=== PATIENT | female | born 1980 | race Caucasian/White ===

== ENCOUNTER 2017-09-26 21:34 | Emergency (ER) | payer OTHER ==
[2017-09-26] MEDS ORDERED: Promethazine 25 MG/ML SDV IM ONE (23:25)
[2017-09-26] MEDS ORDERED: Butorphanol 2 MG/ML SDV IM ONE (23:25)
[2017-09-26 23:27] VITALS: BP 157/91
--- NOTE | 2017-09-26 23:31 | EDM.PDOC ---
ED HPI GENERAL MEDICAL PROBLEM - General Chief Complaint: Headache Stated Complaint: VOMITING MIGRAINE Time Seen by Provider: 09/26/17 23:26 Source of Information: Reports: Patient History Limitations: Reports: No Limitations - History of Present Illness INITIAL COMMENTS - FREE TEXT/NARRATIVE: gives long h/o migraines. 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 Headache Pain Score (Numeric/FACES): 10 - Related Data Allergies Allergy/AdvReac Type Severity Reaction Status Date / Time amoxicillin [Amoxicillin] Allergy Hives Verified 09/26/17 22:44 erythromycin base Allergy Hives Verified 09/26/17 22:44 [Erythromycin Base] Home Meds: Home Meds Levothyroxine Sodium [Synthroid] 75 mcg PO DAILY 12/22/13 [History] Fluoxetine 20 mg PO DAILY 11/08/15 [History] Labetolol 100 mg PO DAILY 11/08/15 [History] Calcium Carbonate [Calcium] 500 mg PO DAILY 01/03/16 [History] Riboflavin [Vitamin B-2] 200 mg PO BID 01/03/16 [History] Past Medical History HEENT History: Reports: Otitis Media Cardiovascular History: Reports: Hypertension Respiratory History: Reports: None Gastrointestinal History: Reports: Celiac Disease Genitourinary History: Reports: None 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: , 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 (See Below) Other OB/BYN History: PCOS Neurological History: Reports: Migraines Psychiatric History: Reports: Anxiety Endocrine/Metabolic History: Reports: Hypothyroidism Hematologic History: Reports: None Immunologic History: Reports: None Oncologic (Cancer) History: Reports: None Dermatologic History: Reports: None - Infectious Disease History Infectious Disease History: Reports: Chicken Pox - Past Surgical History Musculoskeletal Surgical History: Reports: Other (See Below) Social & Family History - Family History Family Medical History: Noncontributory - Tobacco Use Smoking Status *Q: Never Smoker Second Hand Smoke Exposure: No - Caffeine Use Caffeine Use: Reports: Soda - Alcohol Use Days Per Week of Alcohol Use: 0 - Recreational Drug Use Recreational Drug Use: No - Living Situation & Occupation Occupation: Employed ED ROS GENERAL - Review of Systems Review Of Systems: ROS reveals no pertinent complaints other than HPI. - Physical Exam Exam: See Below Exam Limited By: No Limitations General Appearance: Alert, WD/WN, Mild Distress, Moderate Distress, Other ( headache) Eye Exam: Bilateral Eye: PERRL (pupils ER @ 4mm) Ears: Hearing Grossly Normal Throat/Mouth: Normal Voice, No Airway Compromise Head Exam: Atraumatic Neck: Non-Tender, Full Range of Motion Respiratory/Chest: No Respiratory Distress Cardiovascular: Regular Rate, Rhythm GI/Abdominal: Soft, Non-Tender Neuro Exam (Abbreviated): Alert, Oriented, Normal Cognition, Normal Gait, No Motor/Sensory Deficits Psychiatric: Tearful Skin Exam: Warm, Dry, Normal Color Course - Vital Signs Last Recorded V/S: Last Vital Signs Temp 36.5 C 09/26/17 23:26 Pulse 67 09/26/17 23:26 Resp 14 09/26/17 23:26 BP 157/91 H 09/26/17 23:26 Pulse Ox 97 09/26/17 23:26 - Orders/Labs/Meds Labs: Laboratory Tests 09/26/17 Range/Units 22:54 Urine HCG, Qual Negative Meds: Medications Discontinued Medications Generic Name Dose Route Start Last Admin Trade Name Claudia PRN Reason Stop Dose Admin Butorphanol Tartrate 2 mg 09/26/17 23:25 09/26/17 23:31 Stadol IM 09/26/17 23:26 2 mg ONETIME ONE Administration Ondansetron HCl 4 mg 09/27/17 00:11 09/27/17 00:16 Zofran Odt PO 09/27/17 00:12 4 mg ONETIME ONE Administration Promethazine HCl 25 mg 09/26/17 23:25 09/26/17 23:32 Phenergan IM 09/26/17 23:26 25 mg ONETIME ONE Administration - Re-Assessments/Exams Free Text/Narrative Re-Assessment/Exam: 09/27/17 00:11 re-exam; s/p stadol + phenergan = much better but feels little nauseous when get up. otherwise pain almost gone. Departure - Departure Time of Disposition: 00:27 Disposition: Home, Self-Care 01 Condition: Good Clinical Impression: Migraine - Discharge Information Instructions: Recurrent Migraine Headache, [id number] Forms: ED Department Discharge Additional Instructions: 1) rest as much as possible 2) follow up with family doctor or recheck as needed
[2017-09-27] MEDS ORDERED: Ondansetron 4 MG Tab.DIS PO ONE (00:11)
== END 2017-09-27 00:29 | disposition home or self-care (01) ==
LOC: DL.ED 21:34
DX: G43.909 Migraine, unspecified, not intractable, without status migrainosus (principal); I10 Essential (primary) hypertension; Z88.1 Allergy status to other antibiotic agents; Z79.899 Other long term (current) drug therapy
CPT/HCPCS: 81025; 96372; 99284; A9270; J0595; J2550

== ENCOUNTER 2018-12-17 20:34 | Emergency (ER) | payer OTHER ==
[2018-12-17] MEDS ORDERED: Ondansetron 4 MG/2 ML SDV IV ONE (20:46)
[2018-12-17] MEDS ORDERED: Sodium Chloride 0.9% 1,000 ML IV ONE (20:46)
--- NOTE | 2018-12-17 20:49 | EDM.PDOC ---
ED HPI GENERAL MEDICAL PROBLEM - General Chief Complaint: Abdominal Pain Stated Complaint: GALBLADDER ATTACK [id number] Time Seen by Provider: 12/17/18 20:47 Source of Information: Reports: Patient History Limitations: Reports: No Limitations - History of Present Illness INITIAL COMMENTS - FREE TEXT/NARRATIVE: onset yesterday with diarrhoea denies h/o GB problems, ate breakfast of cereal then lunch of cheese sticks and milk and tonight tacos today and felt worse with more pain but no further V&D. also trying to get . Epigastric Pain Score (Numeric/FACES): 8 - Related Data Allergies Allergy/AdvReac Type Severity Reaction Status Date / Time amoxicillin [Amoxicillin] Allergy Hives Verified 12/17/18 21:15 erythromycin base Allergy Hives Verified 12/17/18 21:15 [Erythromycin Base] Home Meds: Home Meds Levothyroxine Sodium [Synthroid] 75 mcg PO DAILY 12/22/13 [History] Fluoxetine 20 mg PO DAILY 11/08/15 [History] Labetolol 100 mg PO DAILY 11/08/15 [History] Calcium Carbonate [Calcium] 500 mg PO DAILY 01/03/16 [History] Riboflavin [Vitamin B-2] 200 mg PO BID 01/03/16 [History] metFORMIN [Glucophage] 500 mg PO DAILY 12/17/18 [History] Past Medical History HEENT History: Reports: Otitis Media Cardiovascular History: Reports: Hypertension Respiratory History: Reports: None Gastrointestinal History: Reports: Celiac Disease Genitourinary History: Reports: None 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: , 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 (See Below) Other RN PROGRESSIVE CARE UNIT History: PCOS Neurological History: Reports: Migraines Psychiatric History: Reports: Anxiety Endocrine/Metabolic History: Reports: Hypothyroidism Hematologic History: Reports: None Immunologic History: Reports: None Oncologic (Cancer) History: Reports: None Dermatologic History: Reports: None - Infectious Disease History Infectious Disease History: Reports: Chicken Pox - Past Surgical History Musculoskeletal Surgical History: Reports: Other (See Below) Social & Family History - Family History Family Medical History: Noncontributory - Caffeine Use Caffeine Use: Reports: Soda - Living Situation & Occupation Occupation: Employed ED ROS GENERAL - Review of Systems Review Of Systems: ROS reveals no pertinent complaints other than HPI. ED EXAM, GI/ABD - Physical Exam Exam: See Below Exam Limited By: No Limitations General Appearance: Alert, WD/WN, Mild Distress, Other (discomfort) Ears: Hearing Grossly Normal Throat/Mouth: Normal Voice, No Airway Compromise Head: Atraumatic Neck: Non-Tender, Full Range of Motion Respiratory/Chest: No Respiratory Distress Cardiovascular: Regular Rate, Rhythm GI/Abdominal Exam: Tender, Other (epiG). No: Distended, Guarding, Rigid, Rebound Neurological: Alert, Oriented, Normal Cognition, Normal Gait, No Motor/Sensory Deficits Psychiatric: Flat Affect Skin Exam: Warm, Dry, Normal Color Lymphatic: No Adenopathy Course - Vital Signs Last Recorded V/S: Last Vital Signs Temp 35.5 C 12/17/18 23:16 Pulse 92 12/17/18 23:56 Resp 14 12/17/18 23:56 BP 126/83 12/17/18 23:56 Pulse Ox 95 12/17/18 23:56 - Orders/Labs/Meds Orders: Active Orders 24 hr Category Date Time Status CULTURE BLOOD [BC] Stat Lab 12/17/18 20:54 Received CULTURE URINE [RM] Stat Lab 12/17/18 20:45 Received Labs: Laboratory Tests 12/17/18 12/17/18 12/17/18 Range/Units 20:45 20:45 20:45 WBC (5.0-10.0) 10^3/uL RBC (4.2-5.4) 10^6/uL Hgb (12.0-16.0) g/dL Hct (37.0-47.0) % MCV (80-100) fL MCH (27.0-34.0) pg MCHC (33.0-35.0) g/dL Plt Count (150-450) 10^3/uL Neut % (Auto) (42.2-75.2) % Lymph % (Auto) (20.5-50.1) % [place] % (Auto) (2-8) % Eos % (Auto) (1.0-3.0) % Baso % (Auto) (0.0-1.0) % Sodium (135-145) mmol/L Potassium (3.6-5.0) mmol/L Chloride (101-111) mmol/L Carbon Dioxide (21.0-31.0) mmol/L Anion Gap BUN (7-18) mg/dL Creatinine (0.6-1.3) mg/dL Est Cr Clr Drug Dosing mL/min Estimated GFR (MDRD) BUN/Creatinine Ratio Glucose (74-105) mg/dL Lactic Acid (0.5-2.2) mmol/L Calcium (8.4-10.2) mg/dl Total Bilirubin (0.2-1.0) mg/dL AST (10-42) IU/L ALT (10-60) IU/L Alkaline Phosphatase (42-121) IU/L Total Protein (6.7-8.2) g/dl Albumin (3.2-5.5) g/dl Globulin Albumin/Globulin Ratio Amylase (28-100) U/L Lipase (22-51) U/L Urine Color Yellow (YELLOW) Urine Appearance Slightly cloudy (CLEAR) Urine pH 6.5 (5.0-9.0) Ur Specific [place] 1.020 (1.005-1.030) Urine Protein Negative (NEGATIVE) Urine Glucose (UA) Negative (NEGATIVE) Urine Ketones Trace H (NEGATIVE) Urine Occult Blood Negative (NEGATIVE) Urine Nitrite Negative (NEGATIVE) Urine Bilirubin Negative (NEGATIVE) Urine Urobilinogen 0.2 (0.2-1.0) mg/dL Ur Leukocyte Esterase Trace H (NEGATIVE) Urine RBC 0-5 /HPF Urine WBC 0-5 (0-5/HPF) /HPF Ur Epithelial Cells Many H /HPF Urine Bacteria Moderate H (0-FEW/HPF) /HPF Urinalysis Comment Urine HCG, Qual Negative Urine Opiates Screen Negative (NEGATIVE) Ur Oxycodone Screen Negative (NEGATIVE) Urine Methadone Screen Negative (NEGATIVE) Ur Barbiturates Screen Negative (NEGATIVE) U Tricyclic Antidepress Negative (NEGATIVE) Ur Phencyclidine Scrn Negative (NEGATIVE) Ur Amphetamine Screen Negative (NEGATIVE) U Methamphetamines Scrn Negative (NEGATIVE) Urine MDMA Screen Positive H (NEGATIVE) U Benzodiazepines Scrn Negative (NEGATIVE) Urine Cocaine Screen Negative (NEGATIVE) U Marijuana (THC) Screen Negative (NEGATIVE) 12/17/18 12/17/18 12/17/18 Range/Units 20:54 20:54 20:54 WBC 16.6 H (5.0-10.0) 10^3/uL RBC 4.65 (4.2-5.4) 10^6/uL Hgb 13.4 (12.0-16.0) g/dL Hct 39.8 (37.0-47.0) % MCV 85.6 D (80-100) fL MCH 28.8 (27.0-34.0) pg MCHC 33.7 (33.0-35.0) g/dL Plt Count 337 D (150-450) 10^3/uL Neut % (Auto) 78.1 H (42.2-75.2) % Lymph % (Auto) 14.9 L (20.5-50.1) % [place] % (Auto) 5.6 (2-8) % Eos % (Auto) 1.2 (1.0-3.0) % Baso % (Auto) 0.2 (0.0-1.0) % Sodium 134 L (135-145) mmol/L Potassium 3.8 (3.6-5.0) mmol/L Chloride 101 (101-111) mmol/L Carbon Dioxide 22.0 (21.0-31.0) mmol/L Anion Gap 14.8 BUN 17 (7-18) mg/dL Creatinine 0.7 (0.6-1.3) mg/dL Est Cr Clr Drug Dosing 113.88 mL/min Estimated GFR (MDRD) > 60 BUN/Creatinine Ratio 24.28 Glucose 99 (74-105) mg/dL Lactic Acid 1.3 (0.5-2.2) mmol/L Calcium 9.0 (8.4-10.2) mg/dl Total Bilirubin 0.6 (0.2-1.0) mg/dL AST 24 (10-42) IU/L ALT 22 (10-60) IU/L Alkaline Phosphatase 60 (42-121) IU/L Total Protein 6.9 (6.7-8.2) g/dl Albumin 3.9 (3.2-5.5) g/dl Globulin 3.0 Albumin/Globulin Ratio 1.30 Amylase 60 (28-100) U/L Lipase 31 (22-51) U/L Urine Color (YELLOW) Urine Appearance (CLEAR) Urine pH (5.0-9.0) Ur Specific [place] (1.005-1.030) Urine Protein (NEGATIVE) Urine Glucose (UA) (NEGATIVE) Urine Ketones (NEGATIVE) Urine Occult Blood (NEGATIVE) Urine Nitrite (NEGATIVE) Urine Bilirubin (NEGATIVE) Urine Urobilinogen (0.2-1.0) mg/dL Ur Leukocyte Esterase (NEGATIVE) Urine RBC /HPF Urine WBC (0-5/HPF) /HPF Ur Epithelial Cells /HPF Urine Bacteria (0-FEW/HPF) /HPF Urinalysis Comment Urine HCG, Qual Urine Opiates Screen (NEGATIVE) Ur Oxycodone Screen (NEGATIVE) Urine Methadone Screen (NEGATIVE) Ur Barbiturates Screen (NEGATIVE) U Tricyclic Antidepress (NEGATIVE) Ur Phencyclidine Scrn (NEGATIVE) Ur Amphetamine Screen (NEGATIVE) U Methamphetamines Scrn (NEGATIVE) Urine MDMA Screen (NEGATIVE) U Benzodiazepines Scrn (NEGATIVE) Urine Cocaine Screen (NEGATIVE) U Marijuana (THC) Screen (NEGATIVE) Meds: Medications Discontinued Medications Generic Name Dose Route Start Last Admin Trade Name Freq PRN Reason Stop Dose Admin Hydromorphone HCl 1 mg 12/17/18 23:23 12/17/18 23:28 Dilaudid IVPUSH 12/17/18 23:24 1 mg ONETIME ONE Administration Sodium Chloride 1,000 mls @ 999 mls/hr 12/17/18 20:46 12/17/18 21:02 Normal Saline IV 12/17/18 21:46 999 mls/hr .BOLUS ONE Administration Iopamidol 100 ml 12/17/18 22:17 12/17/18 22:28 Isovue-300 (61%) IVPUSH 12/17/18 22:18 100 ml ONETIME ONE Administration Ketorolac Tromethamine 30 mg 12/17/18 21:31 12/17/18 21:34 Toradol IVPUSH 12/17/18 21:32 30 mg ONETIME ONE Administration Metoclopramide HCl 10 mg 12/17/18 23:23 12/17/18 23:28 Reglan IVPUSH 12/17/18 23:24 10 mg ONETIME ONE Administration Ondansetron HCl 4 mg 12/17/18 20:46 12/17/18 21:01 Zofran IV 12/17/18 20:47 4 mg ONETIME ONE Administration - Re-Assessments/Exams Free Text/Narrative Re-Assessment/Exam: 12/17/18 23:24 results discussed with pt. 12/18/18 00:23 re-exam feeling much better s/p Rx Departure - Departure Time of Disposition: 00:24 Disposition: Home, Self-Care 01 Condition: Good Clinical Impression: Gastroenteritis Abdominal pain Qualifiers: Abdominal location: epigastric Qualified Code(s): R10.13 - Epigastric pain Vomiting Qualifiers: Vomiting type: unspecified Vomiting Intractability: non-intractable Nausea presence: with nausea Qualified Code(s): R11.2 - Nausea with vomiting, unspecified Diarrhea Qualifiers: Diarrhea type: unspecified type Qualified Code(s): R19.7 - Diarrhea, unspecified - Discharge Information Instructions: Nausea and Vomiting, Adult, [id number] Forms: ED Department Discharge Additional Instructions: 1) avoid solid foods next 48 hours 2) see clinic in the morning for GALL BLADDER ULTRASOUND 3) recheck as needed - My Orders Last 24 Hours: My Active Orders 12/17/18 20:45 CULTURE URINE [RM] Stat 12/17/18 20:54 CULTURE BLOOD [BC] Stat - Assessment/Plan Last 24 Hours: My Active Orders 12/17/18 20:45 CULTURE URINE [RM] Stat 12/17/18 20:54 CULTURE BLOOD [BC] Stat
[2018-12-17 21:22] LABS: ANION GAP 14.8; CHLORIDE,CL 101 mmol/L (101-111); SODIUM,NA 134 mmol/L (135-145)
[2018-12-17] MEDS ORDERED: Ketorolac 30 MG/ML SDV IVPUSH ONE (21:31)
[2018-12-17] MEDS ORDERED: Iopamidol 612 MG/ML 100 ML Bottle IVPUSH ONE (22:17)
[2018-12-17] MEDS ORDERED: Metoclopramide 10 MG/2 ML SDV IVPUSH ONE (23:23)
[2018-12-17] MEDS ORDERED: HYDROmorphone 1 MG/ML Syringe IVPUSH ONE (23:23)
[2018-12-17 23:57] VITALS: BP 126/83
== END 2018-12-18 00:15 | disposition home or self-care (01) ==
LOC: DL.ED 20:34
DX: K52.9 Noninfective gastroenteritis and colitis, unspecified (principal); I10 Essential (primary) hypertension; E03.9 Hypothyroidism, unspecified; F41.9 Anxiety disorder, unspecified; Z88.1 Allergy status to other antibiotic agents; Z79.899 Other long term (current) drug therapy; Z79.84 Long term (current) use of oral hypoglycemic drugs
CPT/HCPCS: 36415; 74177; 80053; 80305; 81001; 81025; 82150; 83605; 83690; 85025; 87040; 87086; 96361; 96374; 96375; 99284; J1170; J1885; J2405; J2765; J7030; Q9967

== ENCOUNTER 2022-08-22 11:10 | Emergency (ER) | payer OTHER ==
[2022-08-22] MEDS ORDERED: Propofol 200 MG/20 ML SDV IV ONE (11:11)
[2022-08-22] MEDS ORDERED: fentaNYL 100 MCG/2 ML SDV IV ONE (11:11)
[2022-08-22] MEDS ORDERED: Midazolam 1 MG/ML 2 ML SDV IV ONE (11:11)
[2022-08-22] MEDS ORDERED: Sodium Chloride 0.9% 10 ML Syringe FLUSH PRN (11:33)
[2022-08-22] MEDS ORDERED: HYDROmorphone 1 MG/ML Syringe IVPUSH ONE (11:33)
[2022-08-22] MEDS ORDERED: HYDROmorphone 1 MG/ML Syringe SUBCUT ONE (12:00)
[2022-08-22 12:04] VITALS: BP 156/111; PULSE 61
[2022-08-22] MEDS ORDERED: Midazolam 1 MG/ML 2 ML SDV ONE (12:46)
[2022-08-22] MEDS ORDERED: fentaNYL 100 MCG/2 ML SDV ONE (12:47)
== END 2022-08-22 13:33 | disposition home or self-care (01) ==
LOC: DL.ED 11:10
DX: S43.014A Anterior dislocation of right humerus, initial encounter (principal); S43.034A Inferior dislocation of right humerus, initial encounter; I10 Essential (primary) hypertension; E03.9 Hypothyroidism, unspecified; Z88.0 Allergy status to penicillin; Z88.1 Allergy status to other antibiotic agents; W22.09XA Striking against other stationary object, initial encounter
CPT/HCPCS: 01620; 23650; 73030; 73060; 96372; 99151; 99153; 99283; J1170; J2250; J2704; J3010

== ENCOUNTER 2025-03-27 07:33 | Day surgery (SDC) | payer BC, MEDICAID ==
[~2025-03-27 07:33] MED LIST: Acetaminophen/Codeine 300-30 MG Tab PO PRN; Lidocaine 1% 30 ML SDV INJECT ONE; Ondansetron 4 MG/2 ML SDV IVPUSH PRN; VANCOmycin 500 MG SDV EYERT ONE
[2025-03-27] MEDS: Proparacaine 0.5% Ophth Soln 15 ML Bottle EYERT ONE ×2 (08:09→08:50)
[2025-03-27] MEDS: Povidone-Iodine 5% Sterile Ophth Soln 30 ML Bottle EYERT ONE ×2 (08:10→08:50)
[2025-03-27] MEDS: Moxifloxacin 0.5% Ophth Soln 3 ML Bottle EYERT ONE (08:10)
[2025-03-27] MEDS: Phenylephrine 10% Ophth Soln 5 ML Bot EYERT PRN (08:11)
[2025-03-27] MEDS: Tropicamide 1% Ophth Soln 15 ML Bottle EYERT ONE (08:11)
[2025-03-27] MEDS: Cataract Ophth Solution EYERT ONE (08:12)
[2025-03-27] MEDS: Timolol Maleate 0.5% Ophth Soln 5 ML Bottle EYERT ONE (08:12)
[2025-03-27] MEDS: Apraclonidine 0.5% Ophth Soln 5 ML Bot EYERT ONE (08:51)
[2025-03-27] MEDS: Dexamethasone/Neomycin/Polymyxin B Ophth Oint 3.5 GM Tube EYERT ONE (08:51)
[2025-03-27] MEDS: Diclofenac Sodium 0.1% Ophth Soln 5 ML Bottle EYERT ONE (08:51)
[2025-03-27] MEDS: VANCOmycin 500 MG SDV EYERT ONE (08:52)
[2025-03-27] MEDS: Lidocaine 1% 30 ML SDV INJECT ONE (08:52)
[2025-03-27] MEDS: Acetaminophen 325 MG Tab PO PRN (09:22)
[2025-03-27 10:11] VITALS: BP 118/78; PULSE 78
== END 2025-03-27 10:20 | disposition home or self-care (01) ==
LOC: DL.SDS 07:33
PROVIDERS: ATTEND Ophthalmology
DX: H25.811 Combined forms of age-related cataract, right eye (principal); H26.31 Drug-induced cataract, right eye; I10 Essential (primary) hypertension; E03.9 Hypothyroidism, unspecified; F41.9 Anxiety disorder, unspecified; Z79.899 Other long term (current) drug therapy; Z88.0 Allergy status to penicillin
CPT/HCPCS: A9270-GY; J2003; J3370; J3490

== ENCOUNTER 2025-08-30 14:52 | Emergency (ER) | payer BC ==
[2025-08-30] MEDS: Ondansetron 4 MG/2 ML SDV IVPUSH ONE (15:47)
[2025-08-30 15:51] LABS: BASOPHILS PERCENT AUTO 0.1 % (0.0-1.0); EOSINOPHILS PERCENT AUTO 1.0 % (1.0-3.0); LYMPHOCYTES PERCENT AUTO 8.7 % (20.5-50.1); MONOCYTES PERCENT AUTO 0.5 % (2-8); NEUTROPHILS PERCENT AUTO 89.7 % (42.2-75.2); PLATELET COUNT,PLT 114 10^3/uL (150-450); RED BLOOD CELL COUNT 3.65 10^6/uL (4.2-5.4); WHITE BLOOD CELL COUNT,WBC 8.2 10^3/uL (5.0-10.0)
[2025-08-30 16:05] LABS: INR 0.9 (0.9-1.2)
[2025-08-30 16:09] LABS: ALANINE AMINOTRANSFERASE,ALT 41.0 U/L (14-59); ASPARTATE AMNIOTRANSFERASE,AST 31.0 U/L (15-37); BILIRUBIN DIRECT 0.2 mg/dL (0.0-0.2); BILIRUBIN TOTAL 0.6 mg/dL (0.2-1.0); BLOOD UREA NITROGEN,BUN 26.0 mg/dL (7-18); CARBON DIOXIDE,CO2 27.0 mmol/L (21-32); CHLORIDE,CL 97.0 mmol/L (98-107); CREATININE 1.27 mg/dL (0.55-1.02); EST CRCL DRUG DOSING (CG) 53.56 mL/min; GLUCOSE RANDOM 143.0 mg/dL (70-99); POTASSIUM,K 3.1 mmol/L (3.5-5.1); PROTEIN TOTAL,TP 6.8 g/dL (6.4-8.2); SODIUM,NA 133.0 mmol/L (136-145)
[2025-08-30 16:11] LABS: A/G RATIO 0.84; ESTIMATED GFR 53.0 mL/min (>=60)
[2025-08-30] MEDS: Take Home: Acetaminophen/HYDROcodone 325-5 MG, 5 Tab Pack PO ONE (17:02)
[2025-08-30] MEDS: Take Home: Ondansetron 4 MG Tab.DIS, 5 Tab Pack PO ONE (17:02)
[2025-08-30 17:51] VITALS: BP 95/68; PULSE 89
== END 2025-08-30 17:06 | disposition home or self-care (01) ==
LOC: DL.ED 14:52
DX: R10.11 Right upper quadrant pain (principal); I10 Essential (primary) hypertension; E03.9 Hypothyroidism, unspecified; Z86.16 Personal history of COVID-19; Z88.0 Allergy status to penicillin; Z88.1 Allergy status to other antibiotic agents; Z79.899 Other long term (current) drug therapy; Z79.890 Hormone replacement therapy
CPT/HCPCS: 36415; 80053; 82248; 83690; 85025; 85610; 96374; 96375; 99284; A9270; J2405; Q0162; J1171